=== PATIENT | female | born 1980 | race Caucasian/White ===

== ENCOUNTER 2018-08-14 17:24 | Inpatient (IN) | payer OTHER ==
[~2018-08-14] VITALS: Ht 170.2 cm; Wt 101.2 kg
[2018-08-14] MEDS ORDERED: SEROQUEL300 MG PO (22:01)
[2018-08-14] MEDS ORDERED: WELLBUTRIN XL300 MG PO (22:02)
[2018-08-14] MEDS ORDERED: PRENATAL TABLE1 EAC2 PO (22:05)
== END 2018-08-22 14:32 | disposition home or self-care (01) | DRG 807 ==
LOC: OB/GYN 17:24 → LDR 17:24 → OB/GYN 08-15 19:50
PROC: 10E0XZZ Delivery of Products of Conception, External Approach (ICD-10-PCS; principal; 2018-08-20)
PROC: 3E033VJ Introduction of Other Hormone into Peripheral Vein, Percutaneous Approach (ICD-10-PCS; 2018-08-20)
PROC: 4A1HXCZ Monitoring of Products of Conception, Cardiac Rate, External Approach (ICD-10-PCS; 2018-08-20)
DX: O60.14X0 Preterm labor third trimester with preterm delivery third trimester, not applicable or unspecified (principal); Z37.0 Single live birth; O14.14 Severe pre-eclampsia complicating childbirth; Z3A.36 36 weeks gestation of pregnancy

== ENCOUNTER 2023-02-27 17:29 | Emergency (ER) | payer OTHER ==
[~2023-02-27] VITALS: Ht 172.7 cm; Wt 89.8 kg
[~2023-02-27 17:29] MED LIST: PRENATAL TABLE1 EAC2 PO; SEROQUEL300 MG PO; WELLBUTRIN XL300 MG PO
== END 2023-02-27 21:32 | disposition home or self-care (01) ==
LOC: ER 17:29
DX: J45.901 Unspecified asthma with (acute) exacerbation (principal); R53.81 Other malaise; Z20.822 Contact with and (suspected) exposure to COVID-19